=== PATIENT | female | born 1950 | race Caucasian/White ===

== ENCOUNTER 2019-11-30 09:58 | Day surgery (SDC) | payer MEDICARE, MEDICAID ==
[~2019-11-30 09:58] MED LIST: CEFAZOLIN SODIUM 2 GM in DEXTROSE 5%-WATER 100 ML IV PRN
[2019-11-30 10:54] LABS: HEMATOCRIT 40.4 % (36.0-47.0); HEMOGLOBIN 13.5 g/dL (12.0-15.5); MEAN CORPUSCULAR HEMOGLOBIN 29.7 pg (27.0-33.4); MEAN CORPUSCULAR HGB CONC 33.5 g/dL (32.0-36.0); MEAN CORPUSCULAR VOLUME 89 fl (80-97); PLATELET COUNT 234 10^3/uL (150-450); RED BLOOD COUNT 4.56 10^6/uL (3.72-5.28); RED CELL DISTRIBUTION WIDTH 14.2 % (11.5-14.0); WHITE BLOOD COUNT 8.6 10^3/uL (4.0-10.5)
[2019-11-30 11:02] LABS: INTERNATIONAL RATION (INR) 0.96; PROTHROMBIN TIME 12.8 SEC (11.4-15.4)
[2019-11-30 11:03] LABS: PARTIAL THROMBOPLASTIN TIME 28.9 SEC (23.5-35.8)
[2019-11-30 11:19] LABS: ANION GAP 5 (5-19); BLOOD UREA NITROGEN 20 mg/dL (7-20); CALCIUM 8.9 mg/dL (8.4-10.2); CARBON DIOXIDE 32 mmol/L (22-30); CHLORIDE 102 mmol/L (98-107); GLUCOSE 150 mg/dL (75-110); POTASSIUM 5.5 mmol/L (3.6-5.0)
[2019-11-30] MEDS ORDERED: LIDOCAINE 1% INJ-PF (10 MG/ML) 30 ML SDV ONE (11:32)
[2019-11-30] MEDS ORDERED: BUPIVACAINE HCL 0.5 % INJ/PF 30 ML SDV ONE (11:32)
[2019-11-30] MEDS ORDERED: ONDANSETRON HCL INJ/PF 4 MG/2 ML SDV ONE ×2 (12:25→14:31)
[2019-11-30] MEDS ORDERED: KETAMINE HCL INJ 500 MG/10 ML VIAL ONE (12:25)
[2019-11-30] MEDS ORDERED: MIDAZOLAM 2 MG/2 ML INJ ONE (12:25)
[2019-11-30] MEDS ORDERED: PROPOFOL INJ 200 MG/20 ML VIAL IV ONE (12:25)
[2019-11-30] MEDS ORDERED: FENTANYL CITRATE INJ/PF 100 MCG/2 ML AMPUL ONE (12:25)
--- NOTE | 2019-11-30 13:02 | EKG REPORT ---
SEVERITY:- ABNORMAL ECG - ACCELERATED JUNCTIONAL RHYTHM ANTERIOR INFARCT, AGE INDETERMINATE : Confirmed by: Ad Jackson MD 30-Nov-2019 13:02:33
--- NOTE | 2019-11-30 13:39 | RADIOLOGY REPORT (SQ) ---
EXAM DESCRIPTION: CHEST SINGLE VIEW COMPLETED DATE/TIME: 11/30/2019 11:03 am REASON FOR STUDY: PRE-OP COMPARISON: None. FINDINGS: One view chest AP portable upright. Mild linear areas of subsegmental atelectasis in the right mid lung zone and right base. Lungs otherwise clear. Normal cardiomediastinal silhouette. No pneumothorax. Osteopenic. TECHNICAL DOCUMENTATION: JOB ID: [id number] Reading location - IP/workstation name: [email or web address]
[2019-11-30] MEDS ORDERED: HYDROCODONE/ACETAMINOPHEN 5-325 MG TABLET PO PRN (14:31)
--- NOTE | 2019-11-30 14:32 | Discharge Summary ---
Discharge Summary (SDC) - Discharge Final Diagnosis: Skin lesion right hand Date of Surgery: 11/30/19 Condition: Good Treatment or Instructions: Schedule Follow Up w/ Dr. Dequan Quigley @ [facility] to be seen in 7 days or as scheduled [place]: [employer]: [place]: Do not remove dressing/splint until follow-up Ice and elevate Tobacco cessation to optimize skin and wound healing Stool softener of choice when on pain medication. USE OF [id number] IBUPROFEN: Ibuprofen (Advil, Nuprin, Medipren, Motrin IB) is a medication for fever and pain control. In addition, it has anti- inflammatory effects which may be beneficial, especially in the treatment of injuries. It's best to take ibuprofen with food. Persons with ulcer disease or allergy to aspirin should notify their physician of this before taking ibuprofen. Ibuprofen can be given every four to six hours, for a total of four doses daily. Age Pain or fever dose Antiinflammatory dose 6-8 yr 200 mg (1 tab) 200 mg (1 tab) 9-11 yr 200 mg (1 tab) 200-400 mg (1-2 tab) 11-14 yr 200-400 mg (1-2 tab) 400 mg (2 tab) 15-adult 400 mg (2 tab) 600 mg (3 tab) ORAL NARCOTIC MEDICATION: You have been given a prescription for pain control. This medication is a narcotic. It's best taken with food, as nausea can result if taken on an empty stomach. Don't operate machinery or drive within six hours of taking this medication. Do not combine this medicine with alcohol, or with any medication which can cause sedation (such as cold tablets or sleeping pills) unless you get permission from the physician. Narcotics tend to cause constipation. If possible, drink plenty of fluids and eat a diet high in fiber and fruits. Please be aware that prescription narcotics also have the potential for abuse. People become addicted to these medications because of the general sense of wellbeing that they induce. This feeling along with a significant reduction in tension, anxiety, and aggression provides a stimulating seductive quality to these drugs. Once your pain is under control, we encourage you to discard your unused narcotics. Prescriptions: Oxycodone HCl/Acetaminophen [Percocet 5-325 mg Tablet] 1 tab PO Q6 PRN #25 tab PRN Reason: Referrals: LING YEE MD [Primary Care Provider] - DEQUAN QUIGLEY DO [ACTIVE STAFF] - 12/06/19 3:20 pm Discharge Diet: As Tolerated Respiratory Treatments at Home: Deep Breathing/Coughing, Incentive Spirometer Discharge Activity: No Lifting Over 10 Pounds, No Lifting/Push/Pulling Report the Following to Your Physician Immediately: Fever over 101 Degrees, Unusual Bleeding, Redness, Swelling, Warmth, Increased Soreness
--- NOTE | 2019-11-30 14:35 | Operative Report ---
Operative Report DATE OF SURGERY: 11/30/19 PREOPERATIVE DIAGNOSIS: Squamous cell carcinoma right hand POSTOPERATIVE DIAGNOSIS: Same OPERATION: Excision squamous cell carcinoma right hand 3 cm x 4 cm with rotational flap SURGEON: AMBER QUIGLEY ANESTHESIA: LMAC TISSUE REMOVED OR ALTERED: Skin lesion sent to pathology COMPLICATIONS: None ESTIMATED BLOOD LOSS: Minimal PROCEDURE: Indication for above procedure: 69-year-old female with skin lesion on her right hand. Findings on examination consistent with squamous cell carcinoma at that point we discussed treatment options I recommended operative intervention which includes excision skin lesion with full-thickness skin graft. After discussing risks and benefits joint decision was made to proceed with operative intervention. Procedure In Detail: Patient was seen and evaluated in the preoperative holding area. The RIGHT upper extremity was initialized and marked. Patient received 2g of Ancef IV for bacterial prophylaxis. Patient was taken back to the operative room where transferred to the operative table and placed under general anesthesia. Once they were adequately anesthetized a nonsterile tourniquet was placed on the upper extremity. A surgical team debriefing was performed ensuring all instrumentation was available, the surgical procedure was discussed with possible concerns reviewed. 15 cc of 1% lidocaine without epinephrine was injected the upper extremity was prepped with Betadine and draped in a sterile fashion. A timeout was done identifying correct patient, procedure and extremity everyone in attendance agree with this and verbalized no concerns. The extremity was elevated the tourniquet was inflated to 250 mmHg. Patient skin lesion was along the dorsal aspect of the thenar eminence measuring 3 cm x 4 cm a 5 mm margin was marked out and skin lesion excised. No evidence of deep involvement. Soft tissue was sent for fresh frozen to determine clear margins. Tourniquet was then deflated and peripheral bleeding was controlled with bipolar cautery. Pathology demonstrated well-differentiated squamous cell carcinoma with negative margins at that point decision was made to proceed with closure. Patient had adequate excursion of her soft tissues to allow rotational flap as opposed to full-thickness skin graft. Rotational flap to cover the 3 cm x 4 cm defect was constructed extending in the ulnar direction. Once adequate excursion was obtained extremity was exsanguinated and tourniquet was inflated. Advancement flap was then reapproximated with 4-0 nylon suture skin edges were contoured to avoid any dogears. At completion tourniquet was inflated there was good perfusion throughout the skin flap. Wound was dressed Xeroform, 4 x 4's and patient was placed in a thumb spica splint. Sponge counts, instrument counts, needle counts were correct. Patient was then awoken from anesthesia. Transferred from the operating room table to the operating room stretcher. There was no intraoperative complications patient tolerated procedure well stable to PACU. Postoperative plan: Patient follow in the office in 2 weeks at which point we will proceed with wound check and review pathology results.
[2019-11-30 16:34] VITALS: BP 134/66
== END 2019-11-30 16:25 | disposition home or self-care (01) ==
LOC: OROUT 09:58
PROVIDERS: ATTEND Orthopaedic Surgery
DX: C44.622 Squamous cell carcinoma of skin of right upper limb, including shoulder (principal); M79.641 Pain in right hand; Z79.01 Long term (current) use of anticoagulants; Z79.899 Other long term (current) drug therapy; E78.00 Pure hypercholesterolemia, unspecified; F17.210 Nicotine dependence, cigarettes, uncomplicated; I10 Essential (primary) hypertension; Z86.73 Personal history of transient ischemic attack (TIA), and cerebral infarction without residual deficits; I25.10 Atherosclerotic heart disease of native coronary artery without angina pectoris; I25.2 Old myocardial infarction; E66.9 Obesity, unspecified; Z68.33 Body mass index [BMI] 33.0-33.9, adult
CPT/HCPCS: 36415; 85027; 85610; 85730; 80048; 88305 ×2; 88331 ×2; 71045; 93005; 93010; 00400; 14040; J2250; J0690; J3490 ×2; J2405; J7060; J2704; 400; J3010